=== PATIENT | male | born 1955 | race Caucasian/White ===

== ENCOUNTER 2020-08-03 20:09 | Outpatient (CLI) | payer MEDICARE, BC | END 2020-08-03 20:10 | disposition home or self-care (01) | LOC: COV 20:09 | PROVIDERS: ATTEND Family Medicine | DX: R50.9 Fever, unspecified (principal); R05 Cough; M79.10 Myalgia, unspecified site; R53.83 Other fatigue; Z20.828 Contact with and (suspected) exposure to other viral communicable diseases ==

== ENCOUNTER 2020-08-07 11:09 | Emergency (ER) | payer MEDICARE, BC ==
--- NOTE | 2020-08-07 11:43 | ED Physician Documentation ---
PD HPI URI - Stated complaint Stated Complaint: ACHING/COUGH/CHILLS - Chief complaint Chief Complaint: General - History obtained from History obtained from: Patient - History of Present Illness Timing - onset: How many weeks ago (1) Timing duration: Weeks (1) Timing details: Gradual onset, Still present Associated symptoms: Chills, Nasal congestion, Dry cough, Dyspnea. No: Fever, Chest pain, NVD Contributing factors: Travel (from [place] 1 1/2 weeks ago.). No: Sick contact, Immunocompromised, COPD / asthma Improves by: Rest. No: Medication (OTC cough med) Worsened by: Activity Similar symptoms before: Has not had sx before Recently seen: No: Clinic (had outpt COVID test done Sunday (4 days ago) with negative result returned yesterday. However having increased dyspnea and had home o2 sats of 92-96% this morning.) Review of Systems Constitutional: reports: Chills, Myalgias, Fatigue. denies: Fever Nose: reports: Congestion Throat: denies: Sore throat Cardiac: denies: Chest pain / pressure, Palpitations Respiratory: reports: Dyspnea, Cough, Wheezing GI: reports: Nausea. denies: Abdominal Pain, Vomiting, Diarrhea Skin: denies: Rash, Lesions Neurologic: reports: Headache. denies: Near syncope, Altered mental status, Head injury PD PAST MEDICAL HISTORY - Past Medical History Past Medical History: Yes Cardiovascular: None Respiratory: None Neuro: None Endocrine/Autoimmune: None GI: None : Kidney stones HEENT: None Psych: None Musculoskeletal: None Derm: None - Past Surgical History Past Surgical History: Yes - Present Medications Home Medications: Ambulatory Orders Medication Instructions Recorded Confirmed Albuterol Sulf [Ventolin Hfa 3 - 4 puffs INH Q4HR PRN #1 inhaler 08/07/20 Inhaler] Benzonatate [Tessalon] 100 mg PO TID PRN #20 capsule 08/07/20 Doxycycline Monohydrate 150 mg PO BID #14 capsule 08/07/20 dexAMETHasone [Decadron] 4 mg PO DAILY #5 tablet 08/07/20 - Allergies Allergies/Adverse Reactions: Allergies Allergy/AdvReac Type Severity Reaction Status Date / Time No Known Drug Allergies Allergy Verified 08/07/20 11:27 - Social History Does the pt smoke?: No Smoking Status: Never smoker Does the pt drink ETOH?: Yes Does the pt have substance abuse?: No - Immunizations Immunizations are current?: Yes - POLST Patient has POLST: No PD ED PE NORMAL - Vitals Vital signs reviewed: Yes (sats during my exam were 95-96% RA mostly. ) - General General: Alert and oriented X 3, No acute distress, Well developed/nourished - HEENT HEENT: Ears normal, Moist mucous membranes, Pharynx benign - Neck Neck: Supple, no meningeal sign, No adenopathy - Cardiac Cardiac: RRR, No murmur - Respiratory Respiratory: No: Clear bilaterally (some mild exp wheezing diffusely. NO coarse sounds. ) - Abdomen Abdomen: Soft, Non tender - Back Back: No CVA TTP - Derm Derm: Normal color, Warm and dry - Extremities Extremities: No edema, No calf tenderness / cord Results - Vitals Vitals: Vital Signs - 24 hr 08/07/20 08/07/20 08/07/20 11:20 12:24 13:52 Temperature 36.7 C Heart Rate 73 66 76 Respiratory 19 14 18 Rate Blood Pressure 109/76 136/82 H O2 Saturation 100 99 08/07/20 16:15 Temperature Heart Rate 77 Respiratory 20 Rate Blood Pressure 124/72 O2 Saturation 95 Oxygen O2 Source Room air - Labs Labs: Laboratory Tests 08/07/20 08/07/20 12:02 13:26 Sodium 136 Potassium 3.8 Chloride 100 L Carbon Dioxide 24 Anion Gap 12.0 BUN 16 Creatinine 0.8 Estimated GFR (MDRD) 97 Glucose 106 H Calcium 9.2 Nasal Adenovirus (PCR) NOT DETECTED Nasal B. parapertussis DNA (PCR) NOT DETECTED Nasal Coronavir 229E PCR NOT DETECTED Nasal Coronavir HKU1 PCR NOT DETECTED Nasal Coronavir NL63 PCR NOT DETECTED Nasal Coronavir OC43 PCR NOT DETECTED Nasal Enterovir/Rhinovir PCR NOT DETECTED Nasal Influenza B PCR NOT DETECTED Nasal Influenza A PCR NOT DETECTED Nasal Parainfluen 1 PCR NOT DETECTED Nasal Parainfluen 2 PCR NOT DETECTED Nasal Parainfluen 3 PCR NOT DETECTED Nasal Parainfluen 4 PCR NOT DETECTED Nasal RSV (PCR) NOT DETECTED Nasal B.pertussis DNA PCR NOT DETECTED Nasal C.pneumoniae (PCR) NOT DETECTED Jose Carlos Human Metapneumo PCR NOT DETECTED Nasal M.pneumoniae (PCR) NOT DETECTED Nasal SARS-CoV-2 (PCR) NOT DETECTED - Rads (name of study) chest xray Radiology: Prelim report reviewed (infiltrate versus nodes/mass left perihilar. CT recommended.), See rad report chest CT Radiology: Prelim report reviewed (likely multifocal infiltrates versus small cystic/cavitary mass or malignancy process. Follow up CT in 1-2 months recommended. ), See rad report PD MEDICAL DECISION MAKING - ED course Complexity details: reviewed results (Resp Panel test negative for everything. CXR with question pneumonia versus node/mass. CT recommended. CT showing likely multifocal pneumonia versus possible cystic lesion or malignancies. Given the clinical picture, presume pneumonia most probable. Informed pt of differential. ), considered differential (has pneumonia appearance on CXR. Having cough and wheeze. Had negative outpt COVID test 4 days ago. I talked with lab and they have open spot for resp panel test. ), d/w patient Departure - Departure Disposition: 01 Home, Self Care Clinical Impression: Acute pneumonia, Lower respiratory infection Condition: Stable Record reviewed to determine appropriate education?: Yes Instructions: ED Pneumonia Adult Follow-Up: [facility] [place] [Provider Group] [facility] [Provider Group] Prescriptions: Albuterol Sulf [Ventolin Hfa Inhaler] 3 - 4 puffs INH Q4HR PRN #1 inhaler PRN Reason: Shortness Of Air/Wheezing dexAMETHasone [Decadron] 4 mg PO DAILY #5 tablet Doxycycline Monohydrate 150 mg PO BID #14 capsule Benzonatate [Tessalon] 100 mg PO TID PRN #20 capsule PRN Reason: Cough Comments: The CT scan was most suggestive for multifocal pneumonia though they could not fully exclude small tumor. Recommendation was repeat x-ray when you are feeling well to ensure resolution. Meanwhile we will treat for respiratory tract infection and early pneumonia with albuterol inhaler and Decadron steroid and doxycycline antibiotic. Also add benzonatate if needed for cough. I transmitted these to [facility] in [place]. I included a couple of clinic names on the [facility]. Follow-up with one of the clinics in the next week or 2 and return if worsening. Discharge Date/Time: 08/07/20 16:35
[2020-08-07] MEDS ORDERED: CHERRY SYRUP 10 ML UDC PO ONE (12:02)
[2020-08-07] MEDS ORDERED: DEXAMETHASONE 10 MG/ML VIAL PO STA (12:02)
[2020-08-07] MEDS ORDERED: ALBUTEROL 1 PUFF INH STA (12:02)
[2020-08-07] MEDS: BENZONATATE 100 MG CAPSULE PO STA ×2 (12:13→12:14)
[2020-08-07 13:04] LABS: C. PNEUMONIAE- RESP PCR PANEL NOT DETECTED
--- NOTE | 2020-08-07 13:14 | XRAY Report ---
PROCEDURE: Chest 1 View X-Ray INDICATIONS: chest pain TECHNIQUE: One view of the chest was acquired. COMPARISON: None. FINDINGS: Surgical changes and devices: None. Lungs and pleura: No pleural effusions or pneumothorax. Mild airspace opacity in the left upper lobe . Mediastinum: Fullness in the left hilar region. Heart size is normal. Bones and chest wall: No suspicious bony lesions. Overlying soft tissues appear unremarkable. IMPRESSION: Fullness in the left hilar region. This could be due to adenopathy or mass or pneumonia. Mild airspace opacity in the left upper lobe which could be due to post obstruction pneumonia or mult ifocal pneumonia. Recommend further evaluation with CT of the chest with IV contrast. Reviewed by: Yosi Herrera MD on 08/07/2020 12:12 PM [facility] Approved by: Yosi Herrera MD on 08/07/2020 12:12 PM [facility] Station ID: [id number]
[2020-08-07] MEDS ORDERED: cefTRIAXone 1 GM VIAL IVP STA (13:27)
[2020-08-07] MEDS ORDERED: LIDOCAINE 1% 2 ML VIAL ONE (13:44)
[2020-08-07] MEDS ORDERED: IOVERSOL 320 100 ML VIAL IVP ONE ×2 (14:01→16:41)
[2020-08-07 14:08] LABS: CALCIUM 9.2 mg/dL (8.5-10.3); CREATININE 0.8 mg/dL (0.6-1.2)
--- NOTE | 2020-08-07 15:54 | CT Report ---
PROCEDURE: CHEST W INDICATIONS: chest perihilar density on CXR; CT recommended CONTRAST: IV CONTRAST: Optiray 320 ml: 100 PO CONTRAST: *NO PO CONTRAST TECHNIQUE: After the administration of intravenous contrast, 5 mm thick sections acquired from the pulmonary api aminta to the posterior costophrenic angles. 7 mm thick coronal MIP reformats were acquired. For radia tion dose reduction, the following was used: automated exposure control, adjustment of mA and/or kV according to patient size. COMPARISON: Chest radiograph dated earlier same day. FINDINGS: Image quality: Excellent. Lungs and pleura: There is acute consolidation involving the superior segment of the left lower lobe accounting for the radiographic appearance. This demonstrates internal cavitary appearance. Numerous bilateral upper and lower lobe ill-defined nodular opacities with surrounding groundglass attenuation , suggesting inflammatory etiology. No pleural effusions or pneumothorax. Central and peripheral ai rways are patent and normal in caliber. Mediastinum: Heart size is normal. No pericardial effusion. There are numerous enlarged subcarinal and bilateral hilar lymph nodes which may be reactive although technically nonspecific. Shotty prevas cular lymph nodes are also seen. Thoracic aorta and central pulmonary arteries are normal in size. E sophagus is normal in caliber. No hiatal hernia. Bones and chest wall: No suspicious bony lesions. No vertebral body compression fractures. No axil janina or supraclavicular adenopathy by size criteria. Thyroid gland negative. Abdomen: Visualized upper abdominal solid organs appear normal. Upper abdominal bowel loops are nor mal in caliber. IMPRESSION: Multifocal ill-defined areas of nodularity and surrounding groundglass attenuation suggestive of infl ammatory appearance. The largest of these demonstrates interval cavitation and correlates to the radi ographic appearance from the prior study. Overall constellation findings raise the possibility of sep tic emboli. Differential includes multifocal pneumonia and cannot exclude malignant possibilities. Re commend short interval follow-up CT after treatment to document resolution and exclude neoplasm. Extensive mediastinal and hilar lymphadenopathy which could be reactive (versus metastatic disease); recommend follow-up to document resolution after treatment. Reviewed by: Mark Munson MD on 08/07/2020 3:53 PM PST Approved by: Mark Munson MD on 08/07/2020 3:53 PM PST Station ID: [id number]
[2020-08-07] MEDS ORDERED: DOXYCYCLINE 100 MG TABLET PO STA (15:57)
[2020-08-07 16:28] VITALS: BP 124/72
== END 2020-08-07 16:35 | disposition home or self-care (01) ==
LOC: ED 11:09
DX: J18.9 Pneumonia, unspecified organism (principal); J22 Unspecified acute lower respiratory infection; R59.0 Localized enlarged lymph nodes; Z20.828 Contact with and (suspected) exposure to other viral communicable diseases
CPT/HCPCS: 36415; 71045; 71260; 80048; 87631; 94640; 96374; 99284; A9270; Q9967; 0202U

== ENCOUNTER 2020-08-13 11:24 | Emergency (ER) | payer MEDICARE, BC ==
--- NOTE | 2020-08-13 11:58 | ED Physician Documentation ---
PD HPI URI - Stated complaint Stated Complaint: COUGH,ACHY,HEADACHE,SOA - Chief complaint Chief Complaint: Resp - History obtained from History obtained from: Patient - History of Present Illness Timing - onset: How many weeks ago (2) Timing duration: Weeks (2) Timing details: Gradual onset, Still present (had improved moderately well after seen ER 6 days ago. Rx Doxy, Decadron, inhaler and Tessalon. He says he felt moderately better for couple of days, but then back to just as bad (not worse). Tessalon did not improve cough. Inhaler helps.) Associated symptoms: Chills, Productive cough, Dyspnea. No: Fever, Sore throat, Chest pain, NVD Contributing factors: No: Sick contact, Travel, Immunocompromised, COPD / asthma Similar symptoms before: Diagnosis (bronchitis/pneumonia remotely.) Recently seen: Emergency Dept (seen 6 days ago for same symtpoms and had CXR then CT chest to eval for left chest infiltrate versus mass. The CT showed developing pneumonia in spots and possible small early abscess.) Review of Systems Constitutional: reports: Chills, Myalgias, Fatigue. denies: Fever Nose: reports: Congestion. denies: Rhinorrhea / runny nose Throat: denies: Sore throat Respiratory: reports: Cough, Wheezing. denies: Dyspnea Skin: denies: Rash, Lesions Neurologic: denies: Altered mental status, Headache PD PAST MEDICAL HISTORY - Past Medical History Past Medical History: No Cardiovascular: None Respiratory: None Neuro: None Endocrine/Autoimmune: None GI: None : Kidney stones HEENT: None Psych: None Musculoskeletal: None Derm: None - Past Surgical History Past Surgical History: No - Present Medications Home Medications: Ambulatory Orders Medication Instructions Recorded Confirmed Albuterol Sulf [Ventolin Hfa 3 - 4 puffs INH Q4HR PRN #1 inhaler 08/07/20 08/13/20 Inhaler] Benzonatate [Tessalon] 100 mg PO TID PRN #20 capsule 08/07/20 08/13/20 Doxycycline Monohydrate 150 mg PO BID #14 capsule 08/07/20 08/13/20 dexAMETHasone [Decadron] 4 mg PO DAILY #5 tablet 08/07/20 08/13/20 dexAMETHasone [Decadron] 4 mg PO DAILY #5 tablet 08/13/20 guaiFENesin/CODEINE [Robitussin AC] 10 ml PO Q6H PRN #240 ml 08/13/20 levoFLOXacin [Levofloxacin] 500 mg PO DAILY #10 tablet 08/13/20 - Allergies Allergies/Adverse Reactions: Allergies Allergy/AdvReac Type Severity Reaction Status Date / Time No Known Drug Allergies Allergy Verified 08/13/20 11:36 - Social History Does the pt smoke?: No Smoking Status: Never smoker Does the pt drink ETOH?: Yes ETOH Use: Wine, Beer Does the pt have substance abuse?: No - Immunizations Immunizations are current?: Yes - POLST Patient has POLST: No PD ED PE NORMAL - Vitals Vital signs reviewed: Yes - General General: Alert and oriented X 3, No acute distress, Well developed/nourished - HEENT HEENT: Moist mucous membranes, Pharynx benign - Neck Neck: Supple, no meningeal sign, No adenopathy - Cardiac Cardiac: RRR, No murmur - Respiratory Respiratory: Clear bilaterally - Abdomen Abdomen: Soft, Non tender - Male Male : Deferred - Rectal Rectal: Deferred - Back Back: No CVA TTP - Derm Derm: Normal color, Warm and dry - Extremities Extremities: Normal ROM s pain, No edema, No calf tenderness / cord - Neuro Neuro: Alert and oriented X 3, No motor deficit, Normal speech Results - Vitals Vitals: Vital Signs - 24 hr 08/13/20 08/13/20 08/13/20 11:32 11:51 13:01 Temperature 36.7 C Heart Rate 92 90 85 Respiratory 20 16 16 Rate Blood Pressure 128/65 116/65 122/59 L O2 Saturation 97 95 96 Oxygen O2 Source Room air - Rads (name of study) chest xray Radiology: Prelim report reviewed (similar to recent CXR with small mass/infiltrate. ), See rad report PD MEDICAL DECISION MAKING - ED course Complexity details: reviewed old records (I hade actually seen him in ER last week. ), reviewed results, d/w patient Departure - Departure Disposition: 01 Home, Self Care Clinical Impression: Acute pneumonia Condition: Stable Record reviewed to determine appropriate education?: Yes Prescriptions: dexAMETHasone [Decadron] 4 mg PO DAILY #5 tablet levoFLOXacin [Levofloxacin] 500 mg PO DAILY #10 tablet guaiFENesin/CODEINE [Robitussin AC] 10 ml PO Q6H PRN #240 ml PRN Reason: Cough Comments: Change antibiotic to levofloxacin daily as prescribed. Continue the inhaler 2 puffs 3-4 times a day for the next several days to week. Use codeine cough medicine if needed for cough. I would still consider redosing the anti- inflammatory for several more days as well. Recheck if not improving well over the next several days and resolved within a week. Return if worsening. Your chest x-ray appears unchanged from last week, so no worsening. Discharge Date/Time: 08/13/20 13:10
--- NOTE | 2020-08-13 12:34 | XRAY Report ---
PROCEDURE: Chest 2 View X-Ray INDICATIONS: Dyspnea, cough TECHNIQUE: 2 view(s) of the chest. COMPARISON: CT chest and chest radiographs 08/07/2020 FINDINGS: Surgical changes and devices: None. Lungs and pleura: No pleural effusions or pneumothorax. Left upper lobe and left midlung airspace op acity has not significant changed. Mediastinum: Left hilar fullness is unchanged. Bones and chest wall: No suspicious bony abnormalitie s. Soft tissues appear unremarkable. IMPRESSION: Unchanged left lung airspace opacity and left hilar lymphadenopathy. Findings are suspicious for rao gnancy although infection and reactive lymphadenopathy. Potentially cause a similar appearance. Eithe r tissue sampling or continued follow-up to document change in response to therapy will be needed to differentiate. Reviewed by: Gustavo Perez MD on 08/13/2020 11:33 AM [facility] [place] Approved by: Gustavo Perez MD on 08/13/2020 11:33 AM [facility] [place] Station ID: [id number]
[2020-08-13 13:02] VITALS: BP 122/59
== END 2020-08-13 13:10 | disposition home or self-care (01) ==
LOC: ED 11:24
DX: J18.9 Pneumonia, unspecified organism (principal)
CPT/HCPCS: 99283; 99284

== ENCOUNTER 2020-09-10 12:00 | Outpatient (CLI) | payer MEDICARE, BC ==
--- NOTE | 2020-09-10 12:50 | XRAY Report ---
PROCEDURE: Chest 2 View X-Ray INDICATIONS: PNEUMONIA TECHNIQUE: 2 view(s) of the chest. COMPARISON: None. FINDINGS: Surgical changes and devices: None. Lungs and pleura: No pleural effusions or pneumothorax. Diffuse scarring and atelectasis. No definit e focal consolidation. Overall grossly unchanged appearance. Mediastinum: Mediastinal contours are normal. Heart size is normal. Bilateral shoulder joint degeneration. IMPRESSION: Overall, grossly stable examination since 08/13/2020 Reviewed by: Mark Munson MD on 09/10/2020 12:48 PM PST Approved by: Mark Munson MD on 09/10/2020 12:48 PM PST Station ID: [id number]
== END 2020-09-10 12:01 | disposition home or self-care (01) ==
LOC: DI 12:00
PROVIDERS: ATTEND Nurse Practitioner Family
DX: J18.9 Pneumonia, unspecified organism (principal)

== ENCOUNTER 2020-11-01 08:47 | Outpatient (CLI) | payer MEDICARE, BC ==
--- NOTE | 2020-11-01 09:48 | CT Report ---
PROCEDURE: CHEST WO INDICATIONS: ABNORMAL CT TECHNIQUE: Noncontrast 5 mm thick sections acquired from the pulmonary apices to the posterior costophrenic angl es. 7 mm thick coronal and sagittal MIP reformats were then acquired. For radiation dose reduction, the following was used: automated exposure control, adjustment of mA and/or kV according to patient size. COMPARISON: CT chest dated 08/07/2020 FINDINGS: Image quality: Excellent. Lungs and pleura: No acute consolidation. 1.1 cm cavitary appearing nodule seen in the left lower lo be on image 118/4. Overall, this appears decreased in size since prior study, previously measuring 2. 8 cm. Additional bilateral ill-defined and nodular lesions have resolved since 08/07/2020 Calcified granuloma measuring 3 mm image 266/4. No pleural effusions or pneumothorax. Diffuse peribronchial cuffing suggestive of nonspecific bronch itis and/or reactive airways disease. Mediastinum: Heart size is normal. No pericardial effusion. No mediastinal adenopathy by size criteria. Thoracic aorta and central pulmonary arteries are normal in size. Esophagus is normal in caliber. No hiatal hernia. Bones and chest wall: No suspicious bony lesions. No vertebral body compression fractures. No axil janina or supraclavicular adenopathy by size criteria. The thyroid is normal in size. Abdomen: Visualized upper abdominal solid organs and bowel loops appear normal in the absence of con trast. IMPRESSION: Interval improvement in numerous bilateral ill-defined and cavitary nodules since 08/07/2020. A resid ual 1.1 cm cavitary nodule in the left lower lobe is markedly improved although residual nodularity p ersists. Recommend continued CT follow-up to document complete resolution. If this finding persists c onsider PET/CT to exclude cavitary neoplastic nodule or metastasis. Reviewed by: Mark Munson MD on 11/01/2020 9:47 AM PST Approved by: Mark Munson MD on 11/01/2020 9:47 AM PST Station ID: [id number]
== END 2020-11-01 08:48 | disposition home or self-care (01) ==
LOC: DI 08:47
PROVIDERS: ATTEND Nurse Practitioner Family
DX: R91.8 Other nonspecific abnormal finding of lung field (principal)

== ENCOUNTER 2021-12-13 07:19 | Outpatient (CLI) | payer MEDICARE, BC ==
--- NOTE | 2021-12-15 01:14 | CT Report ---
PROCEDURE: CHEST WO INDICATIONS: MULTIPLE NODULES OF THE LUNG TECHNIQUE: Noncontrast 1mm axial images were acquired from the pulmonary apices to the posterior costophrenic an gles. Axial 5 mm soft tissue kernel reconstructions were performed as well as 8 mm axial MIP and cor onal and sagittal 5 mm reformations. For radiation dose reduction, the following was used: automate d exposure control, adjustment of mA and/or kV according to patient size. COMPARISON: CT chest 11/01/2020, 08/07/2020 FINDINGS: Image quality: Excellent. Lungs and pleura: Left lower lobe nodule measuring 1.2 x 0.9 cm (4/122) is slightly decreased in ove rall size compared to the prior study 10/04/2020 which it measured 1.2 x 1.0 cm, with interval resoluti on of internal cavitation. The finding is markedly decreased in size compared to the 08/07/2020 study . Within the suspicious nodules. No acute consolidation. Minimal dependent atelectasis or scarring ar e demonstrated in the lung bases. No pleural effusions or pneumothorax. The trachea and central airwa ys are patent. Mediastinum: Heart size is normal. No pericardial effusion. No mediastinal adenopathy by size crit eria. Thoracic aorta and central pulmonary arteries are normal in size. Esophagus is normal in randee jameson. No hiatal hernia. Bones and chest wall: No suspicious bony lesions. No vertebral body compression fractures. No axil janina or supraclavicular adenopathy by size criteria. Thyroid demonstrates no discrete nodules. Abdomen: Visualized upper abdominal solid organs and bowel loops appear normal in the absence of con trast. IMPRESSION: 1. Progressive slight decrease in size of the previously cavitary left lower lobe nodule. Findings li jessica represent sequelae of a prior infectious or inflammatory process. Recommend continued follow-up in 12 months to demonstrate two-year stability. Reviewed by: Drake Lizama MD on 12/15/2021 1:13 AM PDT Approved by: Drake Lizama MD on 12/15/2021 1:13 AM PDT Station ID: [id number]
== END 2021-12-13 07:20 | disposition home or self-care (01) ==
LOC: DI 07:19
PROVIDERS: ATTEND Nurse Practitioner Family
DX: R91.1 Solitary pulmonary nodule (principal)

== ENCOUNTER 2022-01-24 20:04 | Outpatient (CLI) | payer MEDICARE, BC ==
[2022-01-24 20:44] LABS: BASOPHILS % (AUTO) 0.6 %; EOSINOPHILS # (AUTO) 0.6 10^3/uL (0.0-0.7); EOSINOPHILS % (AUTO) 8.4 %; HCT - HEMATOCRIT 45.6 % (42.0-52.0); HGB - HEMOGLOBIN 15.5 g/dL (14.0-18.0); LYMPHOCYTES # (AUTO) 1.7 10^3/uL (1.5-3.5); LYMPHOCYTES % (AUTO) 26.4 %; MEAN CORPUSCULAR HEMOGLOBIN 33.6 pg (27.0-31.0); MEAN CORPUSCULAR VOLUME 98.9 fL (80.0-94.0); MEAN PLATELET VOLUME 10.9 fL (7.4-11.4); MONOCYTES # (AUTO) 0.6 10^3/uL (0.0-1.0); MONOCYTES % (AUTO) 9.2 %; NEUTROPHILS # (AUTO) 3.6 10^3/uL (1.5-6.6); NEUTROPHILS % (AUTO) 55.1 %; PLT - PLATELET COUNT 226 10^3/uL (130-450); RED BLOOD COUNT 4.61 10^6/uL (4.70-6.10); RED CELL DISTRIBUTION WIDTH 12.5 % (12.0-15.0); WHITE BLOOD COUNT 6.5 x10^3/uL (4.8-10.8)
[2022-01-24 20:58] LABS: ALBUMIN 4.2 g/dL (3.2-5.5); ALBUMIN/GLOBULIN RATIO 1.3 (1.0-2.2); ALKALINE PHOSPHATASE 71 IU/L (42-121); ALT ALANINE AMINOTRANSFERASE 22 IU/L (10-60); AST ASPARTATE AMINOTRANSFERASE 22 IU/L (10-42); BILIRUBIN,TOTAL 0.5 mg/dL (0.2-1.0); BUN - BLOOD UREA NITROGEN 13 mg/dL (6-20); CALCIUM 9.5 mg/dL (8.5-10.3); CARBON DIOXIDE - CO2 24 mmol/L (21-32); CHLORIDE 104 mmol/L (101-111); CHOL/HDL RATIO 4.5 (<5.0); CHOLESTEROL 199 mg/dL; CREATININE 0.9 mg/dL (0.6-1.2); GFR - MDRD 84 (>89); GLUCOSE 116 mg/dL (70-100); HDL CHOLESTEROL 44 mg/dL; LDL CHOLESTEROL,CALCULATED 103 mg/dL; LDL/HDL RATIO 2.3 (<3.6); SODIUM 139 mmol/L (135-145); TOTAL PROTEIN 7.5 g/dL (6.7-8.2); TRIGLYCERIDES 261 mg/dL; VLDL CHOLESTEROL 52 mg/dL
[2022-01-24 21:16] LABS: RHEUMATOID FACTOR NEGATIVE (Negative)
[2022-01-24 21:25] LABS: PSA FREE 0.668 ng/mL (0.16-2.81)
[2022-01-24 21:26] LABS: PSA TOTAL 2.393 ng/mL (0.000-2.000)
--- NOTE | 2022-01-25 10:11 | Ultrasound Report ---
PROCEDURE: Abdomen Limited INDICATIONS: HAND PAIN, UMBILLICAL HERNIA TECHNIQUE: Real-time focused scanning was performed of the abdomen, with image documentation. COMPARISON: None. FINDINGS: Focused ultrasound examination of anterior abdominal wall at the level of umbilicus shows a fat-conta ining and partially reducible umbilical hernia with neck measures between 1.7 to 2.8 cm in width. The herniation sac measures approximately 4.3 x 2.6 x 3.9 cm in size. IMPRESSION: Partially reducible fat-containing umbilical hernia as described above. Reviewed by: Roel Stokes MD on 01/25/2022 10:09 AM PDT Approved by: Roel Stokes MD on 01/25/2022 10:09 AM PDT Station ID: [id number]
--- NOTE | 2022-01-25 17:20 | XRAY Report ---
PROCEDURE: Hand 3 View BILAT INDICATIONS: HAND PAIN, UMBILLICAL HERNIA TECHNIQUE: 3 views of the hand(s) acquired. COMPARISON: None FINDINGS: Bones: No fractures or dislocations. No suspicious bony lesions. Scattered IP degenerative changes are present relatively symmetric. No periarticular osteophytes are present. Soft tissues: No suspicious soft tissue calcifications. Metallic density is noted overlying the sof t tissues surrounding the distal left ulna. IMPRESSION: Mild scattered IP degenerative narrowing suggestive of early osteoarthritic change. Reviewed by: Melita Rebollar MD on 01/25/2022 5:18 PM PDT Approved by: Melita Rebollar MD on 01/25/2022 5:18 PM PDT Station ID: [id number]
[2022-01-26 13:10] LABS: ANTI-DNA (DS) AB QN 2 IU/mL (0-9); CENTROMERE B ANTIBODIES <0.2 AI (0.0-0.9); CHROMATIN ANTIBODIES <0.2 AI (0.0-0.9); JO-1 AB <0.2 AI (0.0-0.9); RIBOSOMAL P ANTIBODIES <0.2 AI (0.0-0.9); RNP ANTIBODIES <0.2 AI (0.0-0.9); SCLERODERMA-70 ANTIBODIES <0.2 AI (0.0-0.9); SJOGREN'S ANTI-SS-A <0.2 AI (0.0-0.9); SJOGREN'S ANTI-SS-B <0.2 AI (0.0-0.9); SMITH ANTIBODIES <0.2 AI (0.0-0.9); SMITH/RNP ANTIBODIES <0.2 AI (0.0-0.9)
[2022-01-26 14:10] LABS: FREE TESTOSTERONE(DIRECT) 4.4 pg/mL (6.6-18.1); TESTOSTERONE 414 ng/dL (264-916)
== END 2022-01-24 20:05 | disposition home or self-care (01) ==
LOC: DI 20:04
PROVIDERS: ATTEND Nurse Practitioner Family
DX: M19.041 Primary osteoarthritis, right hand (principal); M19.042 Primary osteoarthritis, left hand; K42.9 Umbilical hernia without obstruction or gangrene; E78.5 Hyperlipidemia, unspecified; F52.21 Male erectile disorder; Z12.5 Encounter for screening for malignant neoplasm of prostate
CPT/HCPCS: 36415; 80053; 80061; 83721; 84153; 84154; 84402; 84403; 85025; 85651; 86200; 86225; 86235; 86430

== ENCOUNTER 2022-01-24 20:09 | Outpatient (CLI) | payer MEDICARE, BC | END 2022-01-24 20:10 | disposition home or self-care (01) | LOC: LAB 20:09 | PROVIDERS: ATTEND Nurse Practitioner Family | DX: Z53.9 Procedure and treatment not carried out, unspecified reason (principal); E78.5 Hyperlipidemia, unspecified; F52.21 Male erectile disorder; M79.644 Pain in right finger(s) ==

== ENCOUNTER 2022-05-25 07:14 | Day surgery (SDC) | payer MEDICARE, BC ==
[~2022-05-25 07:14] MED LIST: CYCLOPENTOLATE 1% OPHTH DROPS 2 ML ONE; KETOROLAC 0.45% OPHTH DROPS ONE; PHENYLEPHRINE 2.5% OPHTH 2 ML DROPS ONE
[2022-05-25] MEDS: PROPARACAINE 0.5% OPHTH DROPS 15 ML ONE ×2 (07:15→07:18)
[2022-05-25] MEDS ORDERED: TRIAMCIN/MOXIFLOX OPHTHALMIC 0.6 ML VIAL IO ONE ×3 (07:18→08:41)
[2022-05-25] MEDS ORDERED: BRIMONIDINE 0.2% OPHTH DROPS 5 ML ONE ×2 (07:18→07:19)
[2022-05-25] MEDS ORDERED: EPINEPHrine 1 MG/ML AMP ONE ×2 (07:18→07:19)
[2022-05-25] MEDS ORDERED: VANCOMYCIN OPHTH (TOPICAL) 10 MG/ML SYRINGE ONE ×2 (07:19)
[2022-05-25] MEDS ORDERED: BSS/LIDOCAINE/EPINEPHRINE 1 ML VIAL ONE ×2 (07:19)
[2022-05-25] MEDS ORDERED: LACTATED RINGERS 1,000 ML IV ONE (07:36)
--- NOTE | 2022-05-25 07:52 | ANESTHESIA ---
Pre-Anesthesia VS, & Labs - Diagnosis LEFT CATARACT - Procedure EXTRACTION OF LEFT CATARACT WITH LENS REPLACEMENT Vital Signs: Temp Pulse Resp BP Pulse Ox O2 Flow Rate 36.3 C L 56 L 16 115/71 97 05/25/22 07:22 05/25/22 07:22 05/25/22 07:22 05/25/22 07:22 05/25/22 07:22 Height: 5 ft 10 in Weight (kg): 86 kg Body Mass Index: 27.1 BMI Classification: Overweight - NPO >8 hours - Lab Results Lab results reviewed: No Home Medications and Allergies Allergies/Adverse Reactions: Allergies Allergy/AdvReac Type Severity Reaction Status Date / Time No Known Drug Allergies Allergy Verified 08/13/20 11:36 Anes History & Medical History - Anesthetic History Anesthesia Complications: reports: No previous complications Family history of Anesthesia Complications: Denies Family history of Malignant Hyperthermia: Denies - Medical History Cardiovascular: reports: None Pulmonary: reports: None Gastrointestinal: reports: None Urinary: reports: Kidney stones Neuro: reports: None Musculoskeletal: reports: None Endocrine/Autoimmune: reports: None Blood Disorders: reports: None Skin: reports: None Smoking Status: Never smoker Psychosocial: reports: No issues indicated History of Cancer?: No - Surgical History General: reports: Colonoscopy Exam General: Alert, Oriented x3, Cooperative, No acute distress Dental: WNL Mouth Openin Fingerbreadth Neck Mobility: Normal Mallampati classification: II Thyromental Distance: 4-6 cm Mental/Cognitive Status: Alert/Oriented X3, Normal for patient Cognitive Status: Within normal limits Plan Anesthesia Type: MAC Consent for Procedure(s) Verified and Reviewed: Yes Code Status: Attempt Resuscitation ASA classification: 2-Mild systemic disease Is this case an emergency?: No
[2022-05-25] MEDS ORDERED: MIDAZOLAM 2 MG/2 ML VIAL ONE (08:28)
[2022-05-25] MEDS ORDERED: EPINEPHrine 1 MG/ML AMP IR ONE (08:40)
[2022-05-25] MEDS ORDERED: BRIMONIDINE 0.2% OPHTH DROPS 5 ML OPTH ONE (08:40)
[2022-05-25] MEDS ORDERED: TIMOLOL 0.5% OPHTH DROPS OPTH ONE (08:41)
[2022-05-25] MEDS ORDERED: BSS/LIDOCAINE/EPINEPHRINE 1 ML SYRINGE IO ONE (08:41)
[2022-05-25] MEDS ORDERED: VANCOMYCIN OPHTH (TOPICAL) 10 MG/ML SYRINGE TOP ONE (08:41)
[2022-05-25] MEDS ORDERED: PROPARACAINE 0.5% OPHTH DROPS 15 ML LEFTEYE ONE (08:41)
[2022-05-25] MEDS ORDERED: fentaNYL 100 MCG/2 ML VIAL ONE (08:48)
[2022-05-25] MEDS ORDERED: LACTATED RINGERS 800 ML IV ONE (08:48)
--- NOTE | 2022-05-25 08:57 | OPERATIVE REPORT ---
Operative Report - Other Other Information/Narrative: Date of Surgery: 05/25/22 Preop Dx: Visually significant cataract left eye. This was the first cataract surgery. Postop Dx: Same Procedure: Phacoemulsification with posterior chamber intraocular lens implant left eye Surgeon: Dr. Darrick Rodriguez Anesthesia: Monitored anesthesia care Complications: None Operative Indications: This is a 66-year-old M with progressive vision loss in the left eye due to 2-3+ nuclear sclerotic and 1+ posterior subcapsular cataract. Best corrected visual acuity was 20/20 with glare to 20/150 vision in the left eye. Indications for surgery were: - Overall decrease in vision - Difficulty seeing words on a computer screen - Difficulty reading - Difficulty with glare or bright lights in any situation The patient was consented at length concerning the risks and benefits of cataract surgery after which the patient expressed a desire to proceed with surgery. Operative Procedure: The patient was taken into OR#3 and placed under monitored anesthesia care. A surgical time-out was conducted confirming correct patient, correct procedure, and correct surgical site. The patient was given topical anesthesia and then prepped and draped in the usual sterile fashion. The eye was entered at the 6 and 3 oclock positions. Intracameral Shugarcaine was injected into the anterior chamber followed by a dispersive viscoelastic. A continuous-tear curvilinear capsulorhexis was performed. The nucleus was hydrodissected and phacoemulsified. The cortex was evacuated using automated infusion and aspiration. A cohesive viscoelastic was injected into the capsular bag and a 19.5 diopter intraocular lens was inserted into the bag. Infusion and aspiration were used to evacuate the viscoelastic materials from the eye. The wounds were hydrated and the eye inflated to physiologic pressure using balanced salt solution. Approximately 0.25ml of a mixture of triamcinolone and moxifloxacin was injected trans-sclerally into the vitreous in the inferotemporal quadrant using a 30 gauge cannula. An additional 0.55ml of a mixture of triamcinolone and moxifloxacin was injected subconjunctivally in the superior quadrant for infection and inflammation prophylaxis. Wound integrity was checked with Weck-Joyce sponges. The patient was taken from the operating room in good condition and given post-op instructions.
[2022-05-25 09:25] VITALS: BP 101/62
--- NOTE | 2022-05-25 13:41 | ANESTHESIA POST OP EVALUATION ---
Anesthesia Post Eval - Post Anesthesia Eval Vitals: Last Vital Signs Temp 36.1 C L 05/25/22 08:50 Pulse 60 05/25/22 09:15 Resp 16 05/25/22 09:15 BP 101/62 05/25/22 09:15 Pulse Ox 97 05/25/22 09:15 O2 Flow Rate CV Function Including HR & BP: Stable Pain Control: Satisfactory Nausea & Vomiting: Negative Mental Status: Baseline Respiratory Status: Airway Patent Hydration Status: Satisfactory Anesthesia Complications: None
== END 2022-05-25 07:15 | disposition home or self-care (01) ==
LOC: SDS 07:14
PROVIDERS: ATTEND Ophthalmology
DX: H25.812 Combined forms of age-related cataract, left eye (principal)
CPT/HCPCS: 66984; A9270; J3490; J7120

== ENCOUNTER 2022-06-29 08:09 | Day surgery (SDC) | payer MEDICARE, BC ==
[~2022-06-29 08:09] MED LIST changes: +PROPARACAINE 0.5% OPHTH DROPS 15 ML ONE
[2022-06-29] MEDS ORDERED: LACTATED RINGERS 1,000 ML IV ONE (08:51)
--- NOTE | 2022-06-29 09:48 | ANESTHESIA ---
Pre-Anesthesia VS, & Labs - Diagnosis retained lens fragments left eye - Procedure extraction of retained lens fragments left eye Vital Signs: Temp Pulse Resp BP Pulse Ox O2 Flow Rate 36.3 C L 56 L 11 L 121/69 98 06/29/22 08:53 06/29/22 08:53 06/29/22 08:53 06/29/22 08:53 06/29/22 08:53 Height: 5 ft 10 in Weight (kg): 88.6 kg Body Mass Index: 28.0 BMI Classification: Overweight - NPO >8 hours Home Medications and Allergies Allergies/Adverse Reactions: Allergies Allergy/AdvReac Type Severity Reaction Status Date / Time No Known Drug Allergies Allergy Verified 08/13/20 11:36 Anes History & Medical History - Anesthetic History Anesthesia Complications: reports: No previous complications - Medical History Cardiovascular: reports: None Pulmonary: reports: None Gastrointestinal: reports: None Urinary: reports: Kidney stones Neuro: reports: None Musculoskeletal: reports: None Endocrine/Autoimmune: reports: None Blood Disorders: reports: None Skin: reports: None Smoking Status: Never smoker Psychosocial: reports: No issues indicated History of Cancer?: No - Surgical History General: reports: Colonoscopy Eyes Ears Nose Throat (EENT): reports: Cataracts Exam General: Alert, Oriented x3, Cooperative, No acute distress Dental: WNL Mouth Openin Fingerbreadth Neck Mobility: Normal Mallampati classification: II Thyromental Distance: 4-6 cm Mental/Cognitive Status: Alert/Oriented X3, Normal for patient Plan Anesthesia Type: MAC Consent for Procedure(s) Verified and Reviewed: Yes Code Status: Attempt Resuscitation ASA classification: 1-Healthy patient Is this case an emergency?: No
[2022-06-29] MEDS ORDERED: fentaNYL 100 MCG/2 ML VIAL ONE (10:10)
[2022-06-29] MEDS ORDERED: MIDAZOLAM 2 MG/2 ML VIAL ONE (10:10)
[2022-06-29] MEDS ORDERED: EPINEPHrine 1 MG/ML AMP IR ONE (10:29)
[2022-06-29] MEDS ORDERED: BRIMONIDINE 0.2% OPHTH DROPS 5 ML OPTH ONE (10:29)
[2022-06-29] MEDS ORDERED: TIMOLOL 0.5% OPHTH DROPS OPTH ONE (10:30)
[2022-06-29] MEDS ORDERED: PROPARACAINE 0.5% OPHTH DROPS 15 ML LEFTEYE ONE (10:30)
[2022-06-29] MEDS ORDERED: BSS/LIDOCAINE/EPINEPHRINE 1 ML SYRINGE IO ONE (10:30)
[2022-06-29] MEDS ORDERED: TRIAMCIN/MOXIFLOX OPHTHALMIC 0.6 ML VIAL IO ONE ×2 (10:30→11:34)
[2022-06-29] MEDS ORDERED: VANCOMYCIN OPHTH (TOPICAL) 10 MG/ML SYRINGE TOP ONE (10:31)
[2022-06-29] MEDS ORDERED: LACTATED RINGERS 950 ML IV ONE (10:40)
[2022-06-29 10:54] VITALS: BP 120/61
--- NOTE | 2022-06-29 10:55 | OPERATIVE REPORT ---
Operative Report - Other Other Information/Narrative: Date of Surgery: 06/29/22 Preop Dx: Retained nuclear lens material left eye. Cataract surgery was performed in the left eye on . Postop Dx: Same Procedure: Aspiration of retained crystalline lens material left eye Surgeon: Dr. Darrick Rodriguez Anesthesia: Monitored anesthesia care Complications: None Operative Indications: This is a 66-year-old M underwent uncomplicated cataract surgery left eye in April 2022. Initial result was good but then intraocular inflammation and corneal edema developed. At his 1 month post-op visit a small piece of nuclear lens material was noted poking out of the inferior angle. Indications for surgery were: - Overall decrease in vision - Recalcitrant intraocular inflammation - Corneal edema The patient was consented at length concerning the risks and benefits of retained lens fragment removal surgery after which the patient expressed a desire to proceed with surgery. Operative Procedure: The patient was taken into OR#3 and placed under monitored anesthesia care. A surgical time-out was conducted confirming correct patient, correct procedure, and correct surgical site. The patient was given topical anesthesia and then prepped and draped in the usual sterile fashion. The eye was entered at the 6 and 3 oclock positions. Intracameral Shugarcaine was injected into the anterior chamber during which a piece of lens material was seen moving about the anterior chamber due to the flow turbulence. The approximately 2mm squarish irregular piece of nuclear lens material was evacuated using automated infusion and aspiration. The wounds were hydrated and the eye inflated to physiologic pressure using balanced salt solution. Approximately 0.25ml of a mixture of triamcinolone and moxifloxacin was injected trans-sclerally into the vitreous in the inferotemporal quadrant using a 30 gauge cannula. An additional 0.55ml of a mixture of triamcinolone and moxifloxacin was injected subconjunctivally in the superior quadrant for infection and inflammation prophylaxis. Wound integrity was checked with Weck- Joyce sponges. The patient was taken from the operating room in good condition and given post-op instructions.
[2022-06-29] MEDS ORDERED: VANCOMYCIN OPHTH (TOPICAL) 10 MG/ML SYRINGE ONE (11:34)
[2022-06-29] MEDS ORDERED: BSS/LIDOCAINE/EPINEPHRINE 1 ML VIAL ONE (11:34)
[2022-06-29] MEDS ORDERED: EPINEPHrine 1 MG/ML AMP ONE (11:34)
[2022-06-29] MEDS ORDERED: TIMOLOL 0.5% OPHTH DROPS ONE (11:34)
[2022-06-29] MEDS ORDERED: BRIMONIDINE 0.2% OPHTH DROPS 5 ML ONE (11:34)
--- NOTE | 2022-06-29 12:39 | ANESTHESIA POST OP EVALUATION ---
Anesthesia Post Eval - Post Anesthesia Eval Vitals: Last Vital Signs Temp 36.4 C L 06/29/22 10:52 Pulse 68 06/29/22 10:52 Resp 16 06/29/22 10:52 BP 120/61 06/29/22 10:52 Pulse Ox 98 06/29/22 10:52 O2 Flow Rate CV Function Including HR & BP: Stable Pain Control: Satisfactory Nausea & Vomiting: Negative Mental Status: Baseline Respiratory Status: Airway Patent Hydration Status: Satisfactory Anesthesia Complications: None
== END 2022-06-29 08:10 | disposition home or self-care (01) ==
LOC: SDS 08:09
PROVIDERS: ATTEND Ophthalmology
DX: H59.022 Cataract (lens) fragments in eye following cataract surgery, left eye (principal)
CPT/HCPCS: 66840; A9270; J3490; J7120

== ENCOUNTER 2022-11-21 09:16 | Outpatient (CLI) | payer MEDICARE, BC ==
--- NOTE | 2022-11-21 15:15 | CT Report ---
PROCEDURE: CHEST WO INDICATIONS: LUNG NODULE TECHNIQUE: Noncontrast 1mm axial images were acquired from the pulmonary apices to the posterior costophrenic an gles. Axial 5 mm soft tissue kernel reconstructions were performed as well as 8 mm axial MIP and cor onal and sagittal 5 mm reformations. For radiation dose reduction, the following was used: automate d exposure control, adjustment of mA and/or kV according to patient size. COMPARISON: CT chest with contrast dated 08/07/2020, CT chest without contrast dated 11/01/2020, CT ch est without contrast dated 12/05/2021 FINDINGS: Image quality: Excellent. Lungs and pleura: No acute air space opacities. A solitary residual left lower lobe pulmonary nodule is stable. On most recent previous image 120/4, measuring 12 mm. On current image 126/4 and measures 11 mm. Calcified granuloma again noted, extreme left lung base. Reference current image 27/4. No new or increasing pulmonary nodules. No pleural effusions or pneumothorax. Central and peripheral airwa ys are patent and normal in caliber. Mediastinum: Heart size is normal. No pericardial effusion. Mild coronary artery calcifications. Pr evious mediastinal adenopathy, which had resolved on the most recent prior study, remains absent. The re is residual small shotty mediastinal adenopathy consistent with inflammatory change. Thoracic aort a and central pulmonary arteries are normal in size. Esophagus is normal in caliber. No hiatal charanjit ia. Bones and chest wall: No suspicious bony lesions. No vertebral body compression fractures. No axil janina or supraclavicular adenopathy by size criteria. The thyroid is normal in size and there are no incidental findings. Abdomen: Visualized upper abdominal solid organs and bowel loops appear normal in the absence of con trast. IMPRESSION: 1. Unchanged size or appearance of left lower lobe pulmonary nodule, measuring 1.1 cm, since the prev ious study of almost 12 months ago. This is diminished from the previous studies, and therefore has n ot increased in size for greater than 2 years, and is consistent with a benign pulmonary nodule. 2. Evidence of chronic granulomatous disease. 3. No findings suspicious for malignancy. CLINICAL RECOMMENDATION STATEMENTS: In patients <35 years with an ITN detected on CT, MRI, or extrathyroidal ultrasound, the Committee re commends further evaluation with dedicated thyroid ultrasound if the nodule is "e1 cm and has no susp icious imaging features, and if the patient has normal life expectancy. In patients "e35 years with an ITN detected on CT, MRI, or extrathyroidal ultrasound, the Committee r ecommends further evaluation with dedicated thyroid ultrasound if the nodule is "e1.5 cm and has no s uspicious imaging features, and if the patient has normal life expectancy. (ACR, 2014) Reviewed by: Lewis Eaton MD on 11/21/2022 3:14 PM PDT Approved by: Lewis Eaton MD on 11/21/2022 3:14 PM PDT Station ID: [id number]
== END 2022-11-21 09:17 | disposition home or self-care (01) ==
LOC: DI 09:16
PROVIDERS: ATTEND Nurse Practitioner Family
DX: R91.1 Solitary pulmonary nodule (principal); D53.9 Nutritional anemia, unspecified
CPT/HCPCS: 36415; 82607; 82746; 82977

== ENCOUNTER 2022-11-21 09:18 | Outpatient (CLI) | payer MEDICARE, BC | END 2022-11-21 09:19 | disposition home or self-care (01) | LOC: LAB 09:18 | PROVIDERS: ATTEND Nurse Practitioner Family | DX: D53.9 Nutritional anemia, unspecified (principal) | CPT/HCPCS: 36415; 82607; 82746; 82977 ==

== ENCOUNTER 2024-05-06 21:37 | Outpatient (CLI) | payer MEDICARE, BC ==
--- NOTE | 2024-05-07 17:27 | Ultrasound Report ---
PROCEDURE: Abdomen Limited INDICATIONS: UMBILICAL HERNIA TECHNIQUE: Real-time focused scanning was performed of the abdomen, with image documentation. COMPARISONS: 01/24/2022 FINDINGS: There is a ventral, fat-containing abdominal wall hernia with a neck measuring 1.9 cm. The hernia sac measures 5.2 x 3.2 x 5.3 cm and contains fat. No fluid or bowel seen. There is no significant increa se in size with Valsalva maneuver, though there is some motion. There is a slight amount of reduction with transducer pressure. IMPRESSION: Similar morphology of a nonobstructing, fat containing ventral abdominal wall hernia compared to 01/24. Size of hernia sac has increased slightly. Reviewed by: Bianka Hamlin MD on 05/07/2024 5:25 PM PDT Approved by: Bianka Hamlin MD on 05/07/2024 5:25 PM PDT Station ID: [id number]
== END 2024-05-06 21:38 | disposition home or self-care (01) ==
LOC: DI 21:37
PROVIDERS: ATTEND Nurse Practitioner Family
DX: K43.9 Ventral hernia without obstruction or gangrene (principal)